=== PATIENT | female | born 2000 | race Hispanic/Latino ===

== ENCOUNTER 2018-12-30 10:48 | Outpatient (CLI) | payer OTHER ==
--- NOTE | 2018-12-30 13:27 | ULT ---
OB ULTRASOUND: Date: 12/30/18 HISTORY: Size and dates. FINDINGS: Real-time imaging of the pelvis shows a single viable intrauterine in a more vertex present ation. Cervical canal length is 4.0 cm. Amniotic fluid is adequate for this stage of . Review of anatomy showed no anomalies detected. The only area that was difficult to visualize w as the face due to orientation. Placenta is posterior in location, without evidence of previa. Measurements are as follows: BPD: 4.1 cm, 18 weeks/4 days HC: 16.5 cm, 19 weeks/2 days AC: 13.6 cm, 19 weeks/1 day FL: 3.0 cm, 19 weeks/3 days IMPRESSION: 1. Single viable intrauterine in a vertex presentation. Overall measurements correspond to a gestational age of 19 weeks/1 day. Estimated date of delivery is 05/25/2019. 2. Placenta which is posterior in location and without evidence of previa. POS: [facility]
== END 2018-12-30 10:49 | disposition home or self-care (01) ==
LOC: BICULT 10:48
PROVIDERS: ATTEND Family Medicine
DX: Z34.82 Encounter for supervision of other normal pregnancy, second trimester (principal); Z3A.19 19 weeks gestation of pregnancy
CPT/HCPCS: 76805

== ENCOUNTER 2019-05-14 10:57 | Inpatient (IN) | payer OTHER ==
[2019-05-15] MEDS ORDERED: Ondansetron PF 4 MG/2 ML Vial IVP PRN ×3 (01:54→20:11)
[2019-05-15] MEDS ORDERED: Ibuprofen 800 MG TAB PO PRN (01:54)
[2019-05-15] MEDS ORDERED: Carboprost 250 MCG/ML AMP IM PRN (01:54)
[2019-05-15] MEDS ORDERED: Butorphanol Tartrate 1 MG/ML VIAL SLOW IVP PRN (01:54)
[2019-05-15] MEDS ORDERED: HYDROcodone/Acetaminophen 5/325 mg Tablet PO PRN ×3 (01:54→20:11)
[2019-05-15] MEDS ORDERED: Promethazine HCl 25 MG/ML VIAL IM PRN ×3 (01:54→20:11)
[2019-05-15] MEDS ORDERED: Lidocaine 1% (PF) 30 ML VIAL SC PRN (01:54)
[2019-05-15] MEDS ORDERED: NS w/ Oxytocin 10 units 500 ML IV SCH ×2 (01:54)
[2019-05-15] MEDS ORDERED: Methylergonovine 0.2 MG/ML VIAL IM PRN (01:54)
[2019-05-15] MEDS ORDERED: Diphenoxylate HCl/Atropine Tablet PO PRN (01:54)
[2019-05-15] MEDS ORDERED: Misoprostol 200 MCG TAB PR PRN (01:54)
[2019-05-15] MEDS ORDERED: hydrALAZINE 20 MG/ML VIAL SLOW IVP PRN ×2 (01:54→20:11)
[2019-05-15] MEDS ORDERED: NS / Oxytocin 40 units/1000ml 1,000 ML IV PRN (01:54)
[2019-05-15] MEDS: Lactated Ringer's 1,000 ML IV SCH ×2 (02:03→08:34)
[2019-05-15 02:10] LABS: Hemoglobin 12.1 g/dL (12.0-16.0); Mean Corpuscular HGB CONC 34.4 g/dL (32.0-36.0); Mean Corpuscular Hemoglobin 28.4 pg (25.0-35.0); Mean Corpuscular Volume 82.5 fL (78.0-98.0); Mean Platelet Volume 9.2 fL (7.4-10.4); Platelet Count 217 thou/uL (130-400); RBC Distribution Width 14.3 % (11.5-14.5); Red Blood Cell (RBC) Count 4.26 mill/uL (4.00-5.20); White Blood Cell (WBC) Count 10.1 thou/uL (4.8-10.8)
[2019-05-15 02:24] VITALS: BMI 32.9
[2019-05-15] MEDS: Misoprostol 100 MCG TAB PO SCH ×4 (02:48→11:43)
[2019-05-15 02:49] LABS: HBSAg Index 0.18 S/CO (0-0.99); Hep B Surf Ag Non-Reactive S/CO (NonReactive)
[2019-05-15 04:22] LABS: Syphilis Antibody Nonreactive (Nonreactive); Syphilis Antibody Index 0.04 S/CO (<1.00 Non-Reactive)
[2019-05-15] MEDS ORDERED: Penicillin G Potassium 5 MILL.UNITS VIAL ONE (07:20)
[2019-05-15] MEDS ORDERED: Fentanyl 4 mcg/Bup 0.1% Cadd 100 ML ONE ×2 (08:24→16:12)
[2019-05-15] MEDS ORDERED: Bupivacaine 0.25% HCL 30 ML VIAL ONE (09:24)
[2019-05-15] MEDS ORDERED: Naloxone HCl 0.4 mg/ml Vial IVP PRN ×2 (11:20)
[2019-05-15] MEDS ORDERED: diphenhydrAMINE 50 MG/ML VIAL IVP PRN (11:20)
[2019-05-15] MEDS ORDERED: EPHEDRINE 25 MG/5 ML SYRINGE SLOW IVP PRN (11:20)
[2019-05-15] MEDS ORDERED: Acetaminophen 325 MG TAB PO PRN (11:20)
[2019-05-15] MEDS ORDERED: Lactated Ringer's 500 ML IV PRN (11:20)
[2019-05-15] MEDS ORDERED: Fentanyl 4 mcg/Bupivacaine 0.1% Cassette 100 ML EPIDURAL SCH (11:30)
[2019-05-15] MEDS ORDERED: Communication Order-Pharmacy FS SCH (11:30)
[2019-05-15] MEDS ORDERED: Preparation H Ointment 28 GM TUBE PR PRN (20:11)
[2019-05-15] MEDS ORDERED: Bisacodyl 10 MG SUPP PR PRN (20:11)
[2019-05-15] MEDS ORDERED: diphenhydrAMINE 25 MG CAP PO PRN (20:11)
[2019-05-15] MEDS ORDERED: Benzocaine-Menthol 82.5 ML CAN TOP PRN (20:11)
[2019-05-15] MEDS ORDERED: Milk Of Magnesia 30 ML UDCUP PO PRN (20:11)
[2019-05-15] MEDS ORDERED: NS / Oxytocin 40 units/1000ml 1,000 ML IV SCH (20:11)
[2019-05-15] MEDS: Docusate Calcium (SURFAK) 240 MG CAP PO SCH (23:04)
[2019-05-15] MEDS: Ibuprofen 800 MG TAB PO SCH (23:04)
[2019-05-16 05:45] LABS: Hemoglobin 10.3 g/dL (12.0-16.0); Mean Corpuscular HGB CONC 33.8 g/dL (32.0-36.0); Mean Corpuscular Hemoglobin 28.3 pg (25.0-35.0); Mean Corpuscular Volume 83.5 fL (78.0-98.0); Mean Platelet Volume 8.9 fL (7.4-10.4); Platelet Count 153 thou/uL (130-400); RBC Distribution Width 14.3 % (11.5-14.5); Red Blood Cell (RBC) Count 3.63 mill/uL (4.00-5.20); White Blood Cell (WBC) Count 16.1 thou/uL (4.8-10.8)
[2019-05-16] MEDS: Ibuprofen 800 MG TAB PO SCH ×3 (06:10→21:42)
[2019-05-16] MEDS: Ferrous Sulfate 325 MG TAB PO SCH ×2 (08:55→15:30)
[2019-05-16] MEDS: Docusate Calcium (SURFAK) 240 MG CAP PO SCH ×2 (08:56→21:42)
[2019-05-16] MEDS ORDERED: Adacel (T-DAP) 0.5 ML SYRINGE IM ONE (09:00)
[2019-05-16] MEDS: Lactated Ringer's 1,000 ML IV SCH (09:38)
[2019-05-17] MEDS: Ibuprofen 800 MG TAB PO SCH ×2 (06:05→13:52)
[2019-05-17 08:04] VITALS: BP 107/68; TEMP 98.7
[2019-05-17] MEDS: Docusate Calcium (SURFAK) 240 MG CAP PO SCH (08:28)
[2019-05-17] MEDS: Ferrous Sulfate 325 MG TAB PO SCH (08:30)
== END 2019-05-17 18:20 | disposition home or self-care (01) | DRG 807 ==
LOC: L&D 05-15 00:54 → EDSTATUS 05-15 10:56 → 3SW 05-15 22:03
PROVIDERS: ADMIT Family Medicine; ATTEND Family Medicine
PROC: 10E0XZZ Delivery of Products of Conception, External Approach (ICD-10-PCS; principal; 2019-05-15)
PROC: 0UQMXZZ Repair Vulva, External Approach (ICD-10-PCS; 2019-05-15)
PROC: 10907ZC Drainage of Amniotic Fluid, Therapeutic from Products of Conception, Via Natural or Artificial Opening (ICD-10-PCS; 2019-05-15)
DX: O76 Abnormality in fetal heart rate and rhythm complicating labor and delivery (principal); Z37.0 Single live birth; Z3A.40 40 weeks gestation of pregnancy; O70.0 First degree perineal laceration during delivery
CPT/HCPCS: 36415; 51702; 85027; 86780; 86850; 86900; 86901; 87340; 88307; J2405; J2540; J2590; S0020